=== PATIENT | female | born 1965 | race Caucasian/White ===

== ENCOUNTER 2017-04-29 13:18 | Outpatient (CLI) | payer BC | END 2017-04-29 13:19 | disposition home or self-care (01) | LOC: BICMAMMO 13:18 | PROVIDERS: ATTEND Internal Medicine Hematology & Oncology | DX: Z08 Encounter for follow-up examination after completed treatment for malignant neoplasm (principal); Z85.3 Personal history of malignant neoplasm of breast; Z98.82 Breast implant status; Z80.3 Family history of malignant neoplasm of breast | CPT/HCPCS: 77066; G0279 ==

== ENCOUNTER 2018-05-03 08:55 | Outpatient (CLI) | payer BC ==
--- NOTE | 2018-05-09 13:21 | MMO ---
MAMMO Bilat Diag [facility]. CLINICAL HISTORY: Patient is 52 years old and is seen for diagnostic exam. The patient has the following family history of breast cancer: paternal aunt. The patient has a history of malignant (generic) in the right breast in 2013. The patient has a history of right Lumpectomy in 2014 - malignant and bilateral Implants. VIEWS: The views performed were: bilateral craniocaudal; bilateral mediolateral oblique; bilateral mediolateral; and bilateral Implant displaced with tomosynthesis. FILMS COMPARED: The present examination has been compared to prior imaging studies performed at 03/28/2015, 03/30/2016 and 04/29/2017, and at [facility] on 03/26/2014. MAMMOGRAM FINDINGS: The breasts are heterogeneously dense, which could obscure a lesion on mammography. There is a stable post-surgical scar and a stable biopsy clip seen in the right breast. Stable bilateral breast implants are seen. There are no suspicious masses, calcifications or areas of architectural distortion. IMPRESSION: THERE IS NO MAMMOGRAPHIC EVIDENCE OF MALIGNANCY. A ROUTINE FOLLOW-UP MAMMOGRAM IN 1 YEAR IS RECOMMENDED. THE RESULTS OF THIS EXAM WERE SENT TO THE PATIENT. ACR BI-RADS Category 2 - Benign finding MAMMOGRAPHY NOTE: 1. A negative mammogram report should not delay a biopsy if a dominant of clinically suspicious mass is present. 2. Approximately 10% to 15% of breast cancers are not detected by mammography. 3. Adenosis and dense breasts may obscure an underlying neoplasm.
== END 2018-05-03 08:56 | disposition home or self-care (01) ==
LOC: BICMAMMO 08:55
PROVIDERS: ATTEND Internal Medicine Hematology & Oncology
DX: Z08 Encounter for follow-up examination after completed treatment for malignant neoplasm (principal); Z85.3 Personal history of malignant neoplasm of breast; Z80.3 Family history of malignant neoplasm of breast
CPT/HCPCS: 77066; G0279

== ENCOUNTER 2019-06-06 08:15 | Outpatient (CLI) | payer BC ==
--- NOTE | 2019-06-06 11:12 | MMO ---
Bilateral MAMMO Bilat Screen [facility]. CLINICAL HISTORY: Patient is 53 years old and is seen for screening. The patient has the following family history of breast cancer: paternal aunt. The patient has a history of malignant (generic) in the right breast in 2013. The patient has a history of right Lumpectomy in 2013 - malignant and bilateral Implants in 2011. VIEWS: The views performed were: bilateral craniocaudal with tomosynthesis and bilateral mediolateral oblique with tomosynthesis. FILMS COMPARED: The present examination has been compared to prior imaging studies performed at [facility] on 03/30/2016, 04/29/2017 and 05/03/2018. This study has been interpreted with the assistance of computer-aided detection. MAMMOGRAM FINDINGS: The breasts are heterogeneously dense, which could obscure a lesion on mammography. Finding 1: There is a post-surgical scar and a biopsy clip seen in the right breast. Finding 2: There are benign appearing and vascular calcifications seen in both breasts. There are no suspicious masses, suspicious calcifications, or new areas of architectural distortion. IMPRESSION: THERE IS NO MAMMOGRAPHIC EVIDENCE OF MALIGNANCY. A ROUTINE FOLLOW-UP MAMMOGRAM IN 1 YEAR IS RECOMMENDED. THE RESULTS OF THIS EXAM WERE SENT TO THE PATIENT. ACR BI-RADS Category 2 - Benign finding MAMMOGRAPHY NOTE: 1. A negative mammogram report should not delay a biopsy if a dominant of clinically suspicious mass is present. 2. Approximately 10% to 15% of breast cancers are not detected by mammography. 3. Adenosis and dense breasts may obscure an underlying neoplasm. Reported by: JUDIE SORIANO MD Electonically Signed: [id number]
== END 2019-06-06 08:16 | disposition home or self-care (01) ==
LOC: BICMAMMO 08:15
PROVIDERS: ATTEND Obstetrics & Gynecology Gynecology
DX: Z12.31 Encounter for screening mammogram for malignant neoplasm of breast (principal); Z80.3 Family history of malignant neoplasm of breast; Z85.3 Personal history of malignant neoplasm of breast; Z98.82 Breast implant status; Z98.890 Other specified postprocedural states
CPT/HCPCS: 77063; 77067

== ENCOUNTER 2020-06-07 09:16 | Outpatient (CLI) | payer BC | END 2020-06-07 09:17 | disposition home or self-care (01) | LOC: BICMAMMO 09:16 | PROVIDERS: ATTEND Obstetrics & Gynecology Gynecology | DX: Z12.31 Encounter for screening mammogram for malignant neoplasm of breast (principal); Z80.3 Family history of malignant neoplasm of breast | CPT/HCPCS: 77063; 77067 ==

== ENCOUNTER 2021-06-09 09:21 | Outpatient (CLI) | payer BC | END 2021-06-09 09:22 | disposition home or self-care (01) | LOC: BICMAMMO 09:21 | PROVIDERS: ATTEND Internal Medicine Hematology & Oncology | DX: Z12.31 Encounter for screening mammogram for malignant neoplasm of breast (principal); Z98.82 Breast implant status; Z85.3 Personal history of malignant neoplasm of breast; Z80.3 Family history of malignant neoplasm of breast | CPT/HCPCS: 77063; 77067 ==

== ENCOUNTER 2022-10-08 12:33 | Day surgery (SDC) | payer BC ==
[2022-10-07 11:58] VITALS: BMI 23.3
[2022-10-08] MEDS ORDERED: Lidocaine 1% MPF 2 ML VIAL ONE (14:30)
[2022-10-08] MEDS ORDERED: CEFAZOLIN 2 GM VIAL ONE (14:30)
[2022-10-08] MEDS ORDERED: Sodium Chloride 0.9% 100 ML ONE (14:30)
[2022-10-08] MEDS ORDERED: Midazolam HCl 2 mg/2 ml Vial ONE ×2 (15:21→16:44)
[2022-10-08] MEDS ORDERED: Scopolamine 1.5 mg/72 hour Patch ONE (15:22)
[2022-10-08] MEDS ORDERED: Bupivacaine 0.25% HCL 30 ML VIAL ONE (16:17)
[2022-10-08] MEDS ORDERED: EPINEPHrine 1 MG/ML AMP ONE (16:17)
[2022-10-08] MEDS ORDERED: Lidocaine 2% PF 5 ML VIAL ONE (16:17)
[2022-10-08] MEDS ORDERED: Propofol 500 MG/50 ML VIAL ONE (16:44)
[2022-10-08] MEDS ORDERED: fentaNYL PF 100 MCG/2 ML SYRINGE ONE (16:44)
[2022-10-08] MEDS ORDERED: Lidocaine 1% PF 5 ML VIAL ONE (17:19)
[2022-10-08] MEDS ORDERED: Ketorolac Tromethamine 30 MG/ML VIAL ONE (17:19)
[2022-10-08] MEDS ORDERED: Ondansetron PF 4 MG/2 ML Vial ONE (17:19)
== END 2022-10-08 19:05 | disposition home or self-care (01) ==
LOC: SDC 12:33
PROVIDERS: ATTEND Surgery
PROC: 0JH60WZ Insertion of Totally Implantable Vascular Access Device into Chest Subcutaneous Tissue and Fascia, Open Approach (ICD-10-PCS; principal; 2022-10-08)
DX: C50.911 Malignant neoplasm of unspecified site of right female breast (principal)
CPT/HCPCS: 71045; 80048; 85025; J0171; J1642; J1885; J2001; J2250; J2405; J2704; J3490; S0020

== ENCOUNTER 2023-08-12 07:40 | Outpatient (CLI) | payer BC | END 2023-08-12 07:41 | disposition home or self-care (01) | LOC: SCSMRI 07:40 | PROVIDERS: ATTEND Internal Medicine | DX: C50.911 Malignant neoplasm of unspecified site of right female breast (principal); K76.89 Other specified diseases of liver | CPT/HCPCS: 74183 ==